=== PATIENT | male | born 1940 | race Caucasian/White ===

== ENCOUNTER 2017-02-23 10:17 | Emergency (ER) | payer MEDICARE ==
[2017-02-23] MEDS ORDERED: Sodium Chloride 0.9% 10 ML Syringe FLUSH PRN (11:02)
--- NOTE | 2017-02-23 11:14 | EDM.PDOC ---
ED HPI GENERAL MEDICAL PROBLEM - General Chief Complaint: Upper Extremity Injury/Pain Stated Complaint: HURT LT ARM Time Seen by Provider: 02/23/17 11:10 Source of Information: Reports: Patient, Family, Old Records, RN Notes Reviewed History Limitations: Reports: No Limitations - History of Present Illness INITIAL COMMENTS - FREE TEXT/NARRATIVE: Felicia presents emergency department today complaint of left shoulder pain he injured himself while he was walking his dog hip tripped and fallen on outstretched arm with a dog was pulling on the leash he does have a history of anterior shoulder dislocation about 3 years ago Left Shoulder Pain Score (Numeric/FACES): 6 - Related Data Allergies Allergy/AdvReac Type Severity Reaction Status Date / Time No Known Allergies Allergy Verified 02/23/17 10:49 Home Meds: Home Meds Gemfibrozil [Gemfibrozil] 600 mg PO BID 06/16/14 [History] Omeprazole [Omeprazole] 20 mg PO DAILY 06/16/14 [History] Simvastatin [Simvastatin] 40 mg PO BEDTIME 06/16/14 [History] Nitroglycerin [Nitrostat] 0.4 mg SL ASDIRECTED PRN 03/16/15 [History] Sildenafil [Viagra] 100 mg PO BEDTIME PRN 03/16/15 [History] Triamcinolone Acetonide [Kenalog 0.1% Crm] 1 applic TOP BID 03/16/15 [History] Aspirin [Halfprin] 1 tab PO DAILY 02/23/17 [History] Melatonin 1 tab PO BEDTIME 02/23/17 [History] Metoprolol Tartrate 1 tab PO BID 02/23/17 [History] Past Medical History HEENT History: Reports: Hard of Hearing, Impaired Vision Cardiovascular History: Reports: CAD, Hypertension Musculoskeletal History: Reports: Other (See Below) Other Musculoskeletal History: torn rotator cuff left shoulder Oncologic (Cancer) History: Reports: Prostate - Past Surgical History Cardiovascular Surgical History: Reports: Coronary Artery Stent Male Surgical History: Reports: Prostatectomy Social & Family History - Tobacco Use Smoking Status *Q: Never Smoker - Alcohol Use Days Per Week of Alcohol Use: 7 Number of Drinks Per Day: 4 Total Drinks Per Week: 28 - Recreational Drug Use Recreational Drug Use: No Review of Systems - Review of Systems Review Of Systems: See Below Musculoskeletal: Reports: Shoulder Pain ED EXAM, GENERAL - Physical Exam Exam: See Below Free Text/Narrative:: examination of left shoulder I do appreciate a bulge in the anterior aspect he has limited range of motion of the shoulder there is pain with any movement radial pulses 2+ he has full range of motion of all his digits Exam Limited By: No Limitations General Appearance: Alert, WD/WN, No Apparent Distress ED TRAUMA EXTREMITY PROCEDURES - Joint Reduction Site: Shoulder (L) Sedation: Conscious Cedation, Other (see anesthesia note for details) Pre-Procedure NV Status: Normal Post-Procedure NV Status: Normal Technique: Traction/Counter Traction Number of Attempts: 2 Post-Reduction Imaging: Completely Reduced Joint Reduction Complications: No Course - Vital Signs Last Recorded V/S: Last Vital Signs Temp 98.2 F 02/23/17 10:41 Pulse 63 02/23/17 10:56 Resp 14 02/23/17 10:56 BP 168/101 H 02/23/17 10:56 Pulse Ox 97 02/23/17 10:56 - Orders/Labs/Meds Orders: Active Orders 24 hr Category Date Time Status Peripheral IV Care [RC] . DIRECTED Care 02/23/17 11:02 Active Shoulder 1V Lt [CR] Stat Exams 02/23/17 10:27 Taken Shoulder 1V Lt [CR] Stat Exams 02/23/17 11:58 Ordered Shoulder 1V Lt [CR] Stat Exams 02/23/17 12:20 Ordered Sodium Chloride 0.9% [Normal Saline] 1,000 ml Med 02/23/17 11:15 Active IV ASDIRECTED Sodium Chloride 0.9% [Saline Flush] Med 02/23/17 11:02 Active 10 ml FLUSH ASDIRECTED PRN Peripheral IV Insertion Adult [OM.PC] Urgent Oth 02/23/17 11:02 Ordered Medication Orders Sodium Chloride (Normal Saline) 1,000 mls @ 125 mls/hr IV ASDIRECTED ELVA Last Admin: 02/23/17 11:08 Dose: 125 mls/hr Sodium Chloride (Saline Flush) 10 ml FLUSH ASDIRECTED PRN PRN Reason: Keep Vein Open Last Admin: 02/23/17 11:09 Dose: 10 ml Meds: Medications Generic Name Dose Route Start Last Admin Trade Name Freq PRN Reason Stop Dose Admin Sodium Chloride 1,000 mls @ 125 mls/hr 02/23/17 11:15 02/23/17 11:08 Normal Saline IV 125 mls/hr ASDIRECTED ELVA Administration Sodium Chloride 10 ml 02/23/17 11:02 02/23/17 11:09 Saline Flush FLUSH 10 ml ASDIRECTED PRN Administration Keep Vein Open Discontinued Medications Generic Name Dose Route Start Last Admin Trade Name Freq PRN Reason Stop Dose Admin Ketorolac Tromethamine 30 mg 02/23/17 11:43 02/23/17 11:48 Toradol IVPUSH 02/23/17 11:44 30 mg ONETIME ONE Administration Departure - Departure Time of Disposition: 12:23 Disposition: Home, Self-Care 01 Condition: Good Clinical Impression: Anterior shoulder dislocation Qualifiers: Encounter type: initial encounter Laterality: left Qualified Code(s): S43.015A - Anterior dislocation of left humerus, initial encounter - Discharge Information Forms: ED Department Discharge Additional Instructions: Use Tylenol or Motrin as needed for pain control, recommend follow-up with orthopedics for further evaluation - My Orders Last 24 Hours: My Active Orders 02/23/17 10:27 Shoulder 1V Lt [CR] Stat 02/23/17 11:02 Peripheral IV Care [RC] . DIRECTED Sodium Chloride 0.9% [Saline Flush] 10 ml FLUSH ASDIRECTED PRN Peripheral IV Insertion Adult [OM.PC] Urgent 02/23/17 11:15 Sodium Chloride 0.9% [Normal Saline] 1,000 ml IV ASDIRECTED 02/23/17 11:58 Shoulder 1V Lt [CR] Stat 02/23/17 12:20 Shoulder 1V Lt [CR] Stat - Assessment/Plan Last 24 Hours: My Active Orders 02/23/17 10:27 Shoulder 1V Lt [CR] Stat 02/23/17 11:02 Peripheral IV Care [RC] . DIRECTED Sodium Chloride 0.9% [Saline Flush] 10 ml FLUSH ASDIRECTED PRN Peripheral IV Insertion Adult [OM.PC] Urgent 02/23/17 11:15 Sodium Chloride 0.9% [Normal Saline] 1,000 ml IV ASDIRECTED 02/23/17 11:58 Shoulder 1V Lt [CR] Stat 02/23/17 12:20 Shoulder 1V Lt [CR] Stat Plan: Assessment Acuity = acute Site and laterality = anterior shoulder dislocation status post closed reduction Etiology = secondary to trauma Manifestations = pain now resolved Location of injury = Home Lab values = multiple x-rays two tamps the first 2 x-rays show continued anterior shoulder dislocation second x-ray shows post reduction Plan He is placed in a sling plan is to follow-up with orthopedics for further evaluation Patient was in agreement with the plan all questions were answered, they were instructed to return to the emergency department or call for worsening symptoms. This note was dictated using vidCoin voice recognition software please call with any questions.
[2017-02-23] MEDS ORDERED: Sodium Chloride 0.9% 1,000 ML IV SCH (11:15)
[2017-02-23] MEDS ORDERED: Ketorolac 30 MG/ML SDV IVPUSH ONE (11:43)
[2017-02-23] MEDS ORDERED: Propofol 200 MG/20 ML SDV ONE ×2 (12:21)
[2017-02-23 13:09] VITALS: BP 150/78
--- NOTE | 2017-02-24 11:05 | CR ---
Anterior shoulder dislocation. Hill-Sachs deformity is evident.
--- NOTE | 2017-02-24 11:07 | CR ---
Relocated left shoulder.
--- NOTE | 2017-02-24 11:08 | CR ---
Anterior shoulder dislocation.
== END 2017-02-23 12:40 | disposition home or self-care (01) ==
LOC: JP.ED 10:17
DX: S43.015A Anterior dislocation of left humerus, initial encounter (principal); I10 Essential (primary) hypertension; I25.10 Atherosclerotic heart disease of native coronary artery without angina pectoris; Z95.5 Presence of coronary angioplasty implant and graft; Z85.46 Personal history of malignant neoplasm of prostate; Z90.79 Acquired absence of other genital organ(s); Z79.82 Long term (current) use of aspirin; Z79.899 Other long term (current) drug therapy; W01.0XXA Fall on same level from slipping, tripping and stumbling without subsequent striking against object, initial encounter
CPT/HCPCS: 23650; 73020; 96374; 99284; J1885; J2704; J7040; J7050

== ENCOUNTER 2018-01-17 14:01 | Observation (INO) | payer MEDICARE ==
[2018-01-17] MEDS ORDERED: fentaNYL 100 MCG/2 ML SDV IVPUSH ONE (14:48)
[2018-01-17] MEDS ORDERED: Ondansetron 4 MG/2 ML SDV IVPUSH ONE (14:48)
--- NOTE | 2018-01-17 14:55 | EDM.PDOC ---
ED HPI GENERAL MEDICAL PROBLEM - General Chief Complaint: Abdominal Pain Stated Complaint: MED[facility] Time Seen by Provider: 01/17/18 14:30 Source of Information: Reports: Patient, EMS, Family History Limitations: Reports: No Limitations - History of Present Illness INITIAL COMMENTS - FREE TEXT/NARRATIVE: 77-year-old male brought in by ambulance with abdominal pain. Started developing some pain earlier this morning, worsening as the day went on. He fell and struck the left side of his head about 3 hours ago but had no loss of consciousness. He did not trip, he just became suddenly weak and "lost it". He thought it was related to the nausea. He has intermittent diarrhea that he thinks is a side effect of some medication that he started 6 weeks ago. No fevers or chills. He has a history of prostate cancer with surgery, no other abdominal medical history. The pain is across the lower abdomen, does not radiate to his back and he ate a small amount of food this morning, it did not make it worse or better. He has not had any emesis until after I examined his abdomen which seemed to cause some nausea and he had several bouts of emesis. Onset: Today Duration: Hour(s): (Started roughly 8 hours ago) Location: Reports: Abdomen Quality: Reports: Sharp, Stabbing, Other (Pressure sensation in his lower abdomen) Severity: Moderate Associated Symptoms: Reports: Cough, Nausea/Vomiting. Denies: Chest Pain Abdominal Pain Score (Numeric/FACES): 4 - Related Data Allergies Allergy/AdvReac Type Severity Reaction Status Date / Time No Known Allergies Allergy Verified 01/17/18 14:20 Home Meds: Home Meds Gemfibrozil 600 mg PO BID 06/16/14 [History] Omeprazole 20 mg PO DAILY 06/16/14 [History] Simvastatin 40 mg PO BEDTIME 06/16/14 [History] Nitroglycerin [Nitrostat] 0.4 mg SL ASDIRECTED PRN 03/16/15 [History] Sildenafil [Viagra] 100 mg PO BEDTIME PRN 03/16/15 [History] Triamcinolone Acetonide [Kenalog 0.1% Crm] 1 applic TOP BID 03/16/15 [History] Aspirin [Halfprin] 1 tab PO DAILY 02/23/17 [History] Melatonin 1 tab PO BEDTIME 02/23/17 [History] Losartan [Cozaar] 1 tab PO DAILY 01/17/18 [History] Metoprolol Tartrate 1 tab PO BID 01/17/18 [History] Nintedanib Esylate [Ofev] 1 tab PO BID 01/17/18 [History] Past Medical History HEENT History: Reports: Hard of Hearing, Impaired Vision Cardiovascular History: Reports: CAD, Hypertension Other Respiratory History: 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 Denies: Fever, Chills HEENT: Reports: No Symptoms Respiratory: Reports: Shortness of Breath, Cough Cardiovascular: Denies: Chest Pain GI/Abdominal: Reports: Abdominal Pain, Diarrhea, Nausea, Vomiting : Reports: No Symptoms (History of prostate cancer with surgery) Skin: Reports: Bruising (Has a superficial abrasion and bruise forming on the left forehead from a recent fall) ED EXAM, GI/ABD - Physical Exam Exam: See Below Exam Limited By: No Limitations General Appearance: Alert, Mild Distress (Looks fairly uncomfortable) Eyes: Bilateral: Normal Appearance (EOMs intact and there is no jaundice) Head: Other (Abrasion is present on the left parietal scalp and forehead, with a tiny scrape on the inner aspect of the left nasal bridge) Neck: Supple, Non-Tender Respiratory/Chest: No Respiratory Distress, Rhonchi (Diffuse rhonchi, decreased breath sounds in the left base) GI/Abdominal Exam: Normal Bowel Sounds, Soft (Less tenderness than would be expected without guarding to palpation of the abdomen) Extremities: Other (He has ecchymosis and tenderness around the right thumb from his fall) Neurological: Alert, Oriented, No Motor/Sensory Deficits Psychiatric: Normal Affect, Normal Mood Course - Vital Signs Last Recorded V/S: Last Vital Signs Temp 98.2 F 01/18/18 07:02 Pulse 61 01/18/18 07:02 Resp 18 01/18/18 07:02 BP 110/79 01/18/18 07:02 Pulse Ox 98 05/27/18 07:02 - Orders/Labs/Meds Orders: Active Orders 24 hr Category Date Time Status Abdomen Pelvis wo Cont [CT] Stat Exams 01/17/18 15:44 Taken Chest 1V Frontal [CR] Stat Exams 01/17/18 14:55 Taken Fingers Thumb Rt F5 [CR] Stat Exams 01/17/18 15:44 Taken Medication Orders Acetaminophen (Tylenol) 650 mg PO Q4H PRN PRN Reason: Pain (Mild 1-3)/fever Albuterol (Proventil Neb Soln) 2.5 mg NEB Q4H PRN PRN Reason: Shortness Of Breath/wheezing Aspirin (Halfprin) 81 mg PO DAILY [facility] Fentanyl (Sublimaze) 25 mcg IVPUSH Q2H PRN PRN Reason: Pain (severe 7-10) Gemfibrozil (Lopid) 600 mg PO BID [facility] Last Admin: 01/17/18 20:59 Dose: 600 mg Sodium Chloride (Normal Saline) 1,000 mls @ 75 mls/hr IV ASDIRECTED [facility] Last Admin: 01/17/18 20:00 Dose: 75 mls/hr Ibuprofen (Motrin) 600 mg PO Q6H PRN PRN Reason: Pain/Fever Last Admin: 01/18/18 07:15 Dose: 600 mg Lorazepam (Ativan) 0.5 - 1 mg IVPUSH Q4H PRN PRN Reason: Nausea/Vomiting Losartan Potassium (Cozaar) 50 mg PO DAILY [facility] Melatonin (Melatonin) 3 mg PO BEDTIME PRN PRN Reason: Sleep Last Admin: 01/17/18 21:00 Dose: 3 mg Metoprolol Tartrate (Lopressor) 50 mg PO BID [facility] Last Admin: 01/17/18 20:59 Dose: 50 mg Nintedanib Esylate [ Ofev] 150mg Pt Own 1 tab PO BID [facility] Last Admin: 01/17/18 21:01 Dose: 1 tab Omeprazole 20mg Cap (Pt Own) 20 each PO ACBREAKFAST [facility] Last Admin: 01/18/18 07:16 Dose: 20 each Simvastatin 40mg Tab (Pt Own) 40 each PO BEDTIME [facility] Last Admin: 01/17/18 21:00 Dose: 40 each Ondansetron HCl (Zofran Odt) 4 mg PO Q6H PRN PRN Reason: Nausea able to take PO Ondansetron HCl (Zofran) 4 mg IV Q6H PRN PRN Reason: Nausea/Vomiting Labs: Laboratory Tests 01/17/18 01/17/18 01/17/18 Range/Units 15:06 15:06 15:06 WBC 8.4 (4.5-11.0) K/uL RBC 4.69 (4.30-5.90) M/uL Hgb 14.6 (12.0-15.0) g/dL Hct 41.2 (40.0-54.0) % MCV 88 (80-98) fL MCH 31 (27-31) pg MCHC 35 (32-36) % Plt Count 257 (150-400) K/uL Neut % (Auto) 79 H (36-66) % Lymph % (Auto) 15 L (24-44) % [place] % (Auto) 6 (2-6) % Eos % (Auto) 0 L (2-4) % Baso % (Auto) 0 (0-1) % Sodium 128 L (140-148) mmol/L Potassium 4.0 (3.6-5.2) mmol/L Chloride 92 L (100-108) mmol/L Carbon Dioxide 23 (21-32) mmol/L Anion Gap 17.0 H (5.0-14.0) mmol/L BUN 11 (7-18) mg/dL Creatinine 0.7 L (0.8-1.3) mg/dL Est Cr Clr Drug Dosing 72.83 mL/min Estimated GFR (MDRD) > 60 (>60) Glucose 119 H (74-106) mg/dL Calcium 8.8 (8.5-10.1) mg/dL Total Bilirubin 0.9 (0.2-1.0) mg/dL AST 21 (15-37) U/L ALT 16 (12-78) U/L Alkaline Phosphatase 87 (46-116) U/L Troponin I 0.054 (0.000-0.056) ng/mL Total Protein 7.9 (6.4-8.2) g/dL Albumin 3.8 (3.4-5.0) g/dL Globulin 4.1 H (2.3-3.5) g/dL Albumin/Globulin Ratio 0.9 L (1.2-2.2) Urine Color Urine Appearance Urine pH (4.5-8.0) Ur Specific [place] (1.008-1.030) Urine Protein (NEGATIVE) mg/dL Urine Glucose (UA) (NEGATIVE) mg/dL Urine Ketones (NEGATIVE) mg/dL Urine Occult Blood (NEGATIVE) Urine Nitrite (NEGAITVE) Urine Bilirubin (NEGATIVE) Urine Urobilinogen (NORMAL) mg/dL Ur Leukocyte Esterase (NEGATIVE) Urine RBC (0-5) Urine WBC (0-5) Ur Epithelial Cells Amorphous Sediment Urine Bacteria Urine Mucus 01/17/18 Range/Units 15:47 WBC (4.5-11.0) K/uL RBC (4.30-5.90) M/uL Hgb (12.0-15.0) g/dL Hct (40.0-54.0) % MCV (80-98) fL MCH (27-31) pg MCHC (32-36) % Plt Count (150-400) K/uL Neut % (Auto) (36-66) % Lymph % (Auto) (24-44) % [place] % (Auto) (2-6) % Eos % (Auto) (2-4) % Baso % (Auto) (0-1) % Sodium (140-148) mmol/L Potassium (3.6-5.2) mmol/L Chloride (100-108) mmol/L Carbon Dioxide (21-32) mmol/L Anion Gap (5.0-14.0) mmol/L BUN (7-18) mg/dL Creatinine (0.8-1.3) mg/dL Est Cr Clr Drug Dosing mL/min Estimated GFR (MDRD) (>60) Glucose (74-106) mg/dL Calcium (8.5-10.1) mg/dL Total Bilirubin (0.2-1.0) mg/dL AST (15-37) U/L ALT (12-78) U/L Alkaline Phosphatase (46-116) U/L Troponin I (0.000-0.056) ng/mL Total Protein (6.4-8.2) g/dL Albumin (3.4-5.0) g/dL Globulin (2.3-3.5) g/dL Albumin/Globulin Ratio (1.2-2.2) Urine Color Yellow Urine Appearance Slightly cloudy Urine pH 7.0 (4.5-8.0) Ur Specific [place] 1.010 (1.008-1.030) Urine Protein Negative (NEGATIVE) mg/dL Urine Glucose (UA) Normal (NEGATIVE) mg/dL Urine Ketones Negative (NEGATIVE) mg/dL Urine Occult Blood Negative (NEGATIVE) Urine Nitrite Negative (NEGAITVE) Urine Bilirubin Negative (NEGATIVE) Urine Urobilinogen Normal (NORMAL) mg/dL Ur Leukocyte Esterase Negative (NEGATIVE) Urine RBC 0-5 (0-5) Urine WBC Not seen (0-5) Ur Epithelial Cells Not seen Amorphous Sediment Many Urine Bacteria Rare Urine Mucus Not seen Meds: Medications Generic Name Dose Route Start Last Admin Trade Name Freq PRN Reason Stop Dose Admin Acetaminophen 650 mg 01/17/18 18:50 Tylenol PO Q4H PRN Pain (Mild 1-3)/fever Albuterol 2.5 mg 01/17/18 18:50 Proventil Neb Soln NEB Q4H PRN Shortness Of Breath/wheezing Aspirin 81 mg 01/18/18 09:00 Halfprin PO DAILY ELVA Fentanyl 25 mcg 01/17/18 18:50 Sublimaze IVPUSH Q2H PRN Pain (severe 7-10) Gemfibrozil 600 mg 01/17/18 21:00 01/17/18 20:59 Lopid PO 600 mg BID ELVA Administration Sodium Chloride 1,000 mls @ 75 mls/hr 01/17/18 18:50 01/17/18 20:00 Normal Saline IV 75 mls/hr ASDIRECTED ELVA Administration Ibuprofen 600 mg 01/17/18 18:50 01/18/18 07:15 Motrin PO 600 mg Q6H PRN Administration Pain/Fever Lorazepam 0.5 - 1 mg 01/17/18 18:50 Ativan IVPUSH Q4H PRN Nausea/Vomiting Losartan Potassium 50 mg 01/18/18 09:00 Cozaar PO DAILY ELVA Melatonin 3 mg 01/17/18 20:31 01/17/18 21:00 Melatonin PO 3 mg BEDTIME PRN Administration Sleep Metoprolol Tartrate 50 mg 01/17/18 21:00 01/17/18 20:59 Lopressor PO 50 mg BID ELVA Administration Nintedanib Esylate [ 1 tab 01/17/18 21:00 01/17/18 21:01 Ofev] 150mg Pt PO 1 tab Own BID ELVA Administration Omeprazole 20mg Cap 20 each 01/18/18 07:30 01/18/18 07:16 Pt Own PO 20 each ACBREAKFAST ELVA Administration Simvastatin 40mg Tab 40 each 01/17/18 21:00 01/17/18 21:00 Pt Own PO 40 each BEDTIME ELVA Administration Ondansetron HCl 4 mg 01/17/18 18:50 Zofran Odt PO Q6H PRN Nausea able to take PO Ondansetron HCl 4 mg 01/17/18 18:50 Zofran IV Q6H PRN Nausea/Vomiting Discontinued Medications Generic Name Dose Route Start Last Admin Trade Name Freq PRN Reason Stop Dose Admin Fentanyl 25 mcg 01/17/18 14:48 01/17/18 15:19 Sublimaze IVPUSH 01/17/18 14:49 25 mcg ONETIME ONE Administration Sodium Chloride 1,000 mls @ 250 mls/hr 01/17/18 15:00 01/17/18 15:18 Normal Saline IV 250 mls/hr ASDIRECTED ELVA Administration Ondansetron HCl 4 mg 01/17/18 14:48 01/17/18 15:19 Zofran IVPUSH 01/17/18 14:49 4 mg ONETIME ONE Administration - Re-Assessments/Exams Free Text/Narrative Re-Assessment/Exam: 01/17/18 15:30 A portable chest x-ray was obtained because of the persistent cough, he appears to have an infiltrate in the left base. His CBC returned normal, white count is normal, no fever. This could be worsening pulmonary fibrosis. An IV was started and the patient was given 4 mg of IV Zofran along with 25 g of fentanyl. This markedly improved his abdominal symptoms. 01/17/18 17:15 CT scan of the abdomen and pelvis revealed an increasing colonic air and possible ileus. The patient's symptoms persisted, he feels weak and is still having abdominal pain. I did x-ray his thumb and it appears he has a subtle fracture of the distal phalanx. I don't think this patient is stable enough or strong enough to take care of himself at home, so I asked the hospitalist service to evaluate the patient for possible admission to treat abdominal pain, ileus until improved. Departure - Departure Time of Disposition: 20:27 Disposition: Admitted As Inpatient 65 Condition: Fair Clinical Impression: Ileus, unspecified Abdominal pain Qualifiers: Abdominal location: generalized Qualified Code(s): R10.84 - Generalized abdominal pain - Discharge Information - My Orders Last 24 Hours: My Active Orders 01/17/18 14:55 Chest 1V Frontal [CR] Stat 01/17/18 15:44 Abdomen Pelvis wo Cont [CT] Stat Fingers Thumb Rt F5 [CR] Stat - Assessment/Plan Last 24 Hours: My Active Orders 01/17/18 14:55 Chest 1V Frontal [CR] Stat 01/17/18 15:44 Abdomen Pelvis wo Cont [CT] Stat Fingers Thumb Rt F5 [CR] Stat
[2018-01-17] MEDS ORDERED: Sodium Chloride 0.9% 1,000 ML IV SCH (15:00)
--- NOTE | 2018-01-17 17:55 | PCM.HP ---
H&P History of Present Illness - General Date of Service: 01/17/18 Admit Problem/Dx: Admission Diagnosis/Problem Admission Diagnosis/Problem Abdominal pain Source of Information: Patient, Family, Provider History Limitations: Reports: No Limitations - History of Present Illness Initial Comments - Free Text/Narative: Reed presents with acute generalized abdominal pain that started this morning. He describes generalized but especially lower abdominal pain that is described as pressure-like in nature. Pain started out relatively mild and has progressed throughout the day to the point that it was severe. He had some associated nausea but had not vomited until he was in the emergency room. He did not take anything to help the pain at home. He did eat after the pain started and this did not seem to make it better or worse. No obvious trigger but the pain has been progressively getting worse. He does note that he had one episode of diarrhea this morning and took 4 mg of loperamide thinking that the diarrhea was a side effect of his medication for pulmonary fibrosis. He has not used the loperamide in approximately one week prior to this morning. He has not had any fevers or chills. He does not feel any more short of breath than usual. He has not recently started new medications other than his IPF medication about 5 weeks ago. No recent use of antihistamines. he did have a fall at home and struck the right hand and left side of his forehead. Pain resulted because of severe pain leading to him becoming weak and collapsing. Workup in the emergency room revealed fairly normal laboratory studies. Chest x- ray showed home and are fibrosis but no acute findings. X-ray of the thumb showed possible subtle fracture of the distal phalanx. CT of the abdomen showed a distended gas-filled colon concerning for mild ileus. Given the severity of his pain he will be admitted for observation, pain control and additional treatment if needed. - Related Data Allergies/Adverse Reactions: Allergies Allergy/AdvReac Type Severity Reaction Status Date / Time No Known Allergies Allergy Verified 01/17/18 14:20 Home Medications: Home Meds Gemfibrozil 600 mg PO BID 06/16/14 [History] Omeprazole 20 mg PO DAILY 06/16/14 [History] Simvastatin 40 mg PO BEDTIME 06/16/14 [History] Nitroglycerin [Nitrostat] 0.4 mg SL ASDIRECTED PRN 07/23/15 [History] Sildenafil [Viagra] 100 mg PO BEDTIME PRN 03/16/15 [History] Triamcinolone Acetonide [Kenalog 0.1% Crm] 1 applic TOP BID 03/16/15 [History] Aspirin [Halfprin] 1 tab PO DAILY 02/23/17 [History] Melatonin 1 tab PO BEDTIME 02/23/17 [History] Metoprolol Tartrate 1 tab PO BID 02/23/17 [History] Nintedanib Esylate [Ofev] 1 tab PO BID 01/17/18 [History] Past Medical History HEENT History: Reports: Hard of Hearing, Impaired Vision Cardiovascular History: Reports: CAD, Hypertension Other Respiratory History: new Dx IPF in Aug now on home o2 Musculoskeletal History: Reports: Other (See Below) Other Musculoskeletal History: torn rotator cuff left shoulder Oncologic (Cancer) History: Reports: Prostate - Past Surgical History Cardiovascular Surgical History: Reports: Coronary Artery Stent Male Surgical History: Reports: Prostatectomy Social & Family History - Family History Respiratory: Denies: Other (See Below) (no hx of IPF) - Tobacco Use Smoking Status *Q: Never Smoker - Alcohol Use Alcohol Use History: No H&P Review of Systems - Review of Systems: Review Of Systems: See Below Free Text/Narrative: A complete 12 point review of systems was obtained. Pertinent positives and negatives are noted in the history of present illness. All other systems were reviewed and were negative except as noted. Exam - Exam Exam: See Below - Vital Signs Vital Signs: Last Vital Signs Temp 36.8 C 01/17/18 14:33 Pulse 86 01/17/18 16:39 Resp 16 01/17/18 16:39 BP 137/100 H 01/17/18 16:39 Pulse Ox 99 01/17/18 16:39 Weight: 63.503 kg - Exam Quality Assessment: Supplemental Oxygen General: Alert, Oriented, Cooperative, Mild Distress HEENT: Other (mild abrasion left forehead). No: Mucosa Moist & [place] (dry), Scleral Icterus Neck: Supple, Trachea Midline Lungs: Normal Respiratory Effort, Crackles (dry crackles both bases). No: Wheezing Cardiovascular: Regular Rate, Regular Rhythm GI/Abdominal Exam: Normal Bowel Sounds, Soft, Non-Tender, No Distention, No Mass Back Exam: Normal Inspection, Full Range of Motion Extremities: Pedal Edema (right leg swollen below the knee). No: Kulwinder's Sign, Increased Warmth Peripheral Pulses: 2+: Dorsalis Pedis (L), Dorsalis Pedis (R) Skin: Warm, Dry Neuro Extensive - Mental Status: Alert, Oriented x3, Nl Response to Commands Neuro Extensive - Motor, Sensory, Reflexes: CN II-XII Intact. No: Dysarthria, Abnormal Motor, Tremor Psychiatric: Alert, Normal Affect - Patient Data Lab Results Last 24 hrs: Laboratory Results - last 24 hr 01/17/18 01/17/18 01/17/18 Range/Units 15:06 15:06 15:06 WBC 8.4 (4.5-11.0) K/uL RBC 4.69 (4.30-5.90) M/uL Hgb 14.6 (12.0-15.0) g/dL Hct 41.2 (40.0-54.0) % MCV 88 (80-98) fL MCH 31 (27-31) pg MCHC 35 (32-36) % Plt Count 257 (150-400) K/uL Neut % (Auto) 79 H (36-66) % Lymph % (Auto) 15 L (24-44) % Edd[place] % (Auto) 6 (2-6) % Eos % (Auto) 0 L (2-4) % Baso % (Auto) 0 (0-1) % Sodium 128 L (140-148) mmol/L Potassium 4.0 (3.6-5.2) mmol/L Chloride 92 L (100-108) mmol/L Carbon Dioxide 23 (21-32) mmol/L Anion Gap 17.0 H (5.0-14.0) mmol/L BUN 11 (7-18) mg/dL Creatinine 0.7 L (0.8-1.3) mg/dL Est Cr Clr Drug Dosing 72.83 mL/min Estimated GFR (MDRD) > 60 (>60) Glucose 119 H (74-106) mg/dL Calcium 8.8 (8.5-10.1) mg/dL Total Bilirubin 0.9 (0.2-1.0) mg/dL AST 21 (15-37) U/L ALT 16 (12-78) U/L Alkaline Phosphatase 87 (46-116) U/L Troponin I 0.054 (0.000-0.056) ng/mL Total Protein 7.9 (6.4-8.2) g/dL Albumin 3.8 (3.4-5.0) g/dL Globulin 4.1 H (2.3-3.5) g/dL Albumin/Globulin Ratio 0.9 L (1.2-2.2) Urine Color Urine Appearance Urine pH (4.5-8.0) Ur Specific [place] (1.008-1.030) Urine Protein (NEGATIVE) mg/dL Urine Glucose (UA) (NEGATIVE) mg/dL Urine Ketones (NEGATIVE) mg/dL Urine Occult Blood (NEGATIVE) Urine Nitrite (NEGAITVE) Urine Bilirubin (NEGATIVE) Urine Urobilinogen (NORMAL) mg/dL Ur Leukocyte Esterase (NEGATIVE) Urine RBC (0-5) Urine WBC (0-5) Ur Epithelial Cells Amorphous Sediment Urine Bacteria Urine Mucus 01/17/18 Range/Units 15:47 WBC (4.5-11.0) K/uL RBC (4.30-5.90) M/uL Hgb (12.0-15.0) g/dL Hct (40.0-54.0) % MCV (80-98) fL MCH (27-31) pg MCHC (32-36) % Plt Count (150-400) K/uL Neut % (Auto) (36-66) % Lymph % (Auto) (24-44) % Eddy % (Auto) (2-6) % Eos % (Auto) (2-4) % Baso % (Auto) (0-1) % Sodium (140-148) mmol/L Potassium (3.6-5.2) mmol/L Chloride (100-108) mmol/L Carbon Dioxide (21-32) mmol/L Anion Gap (5.0-14.0) mmol/L BUN (7-18) mg/dL Creatinine (0.8-1.3) mg/dL Est Cr Clr Drug Dosing mL/min Estimated GFR (MDRD) (>60) Glucose (74-106) mg/dL Calcium (8.5-10.1) mg/dL Total Bilirubin (0.2-1.0) mg/dL AST (15-37) U/L ALT (12-78) U/L Alkaline Phosphatase (46-116) U/L Troponin I (0.000-0.056) ng/mL Total Protein (6.4-8.2) g/dL Albumin (3.4-5.0) g/dL Globulin (2.3-3.5) g/dL Albumin/Globulin Ratio (1.2-2.2) Urine Color Yellow Urine Appearance Slightly cloudy Urine pH 7.0 (4.5-8.0) Ur Specific [place] 1.010 (1.008-1.030) Urine Protein Negative (NEGATIVE) mg/dL Urine Glucose (UA) Normal (NEGATIVE) mg/dL Urine Ketones Negative (NEGATIVE) mg/dL Urine Occult Blood Negative (NEGATIVE) Urine Nitrite Negative (NEGAITVE) Urine Bilirubin Negative (NEGATIVE) Urine Urobilinogen Normal (NORMAL) mg/dL Ur Leukocyte Esterase Negative (NEGATIVE) Urine RBC 0-5 (0-5) Urine WBC Not seen (0-5) Ur Epithelial Cells Not seen Amorphous Sediment Many Urine Bacteria Rare Urine Mucus Not seen Result Diagrams: 01/17/18 15:06 01/17/18 15:06 Imaging Impressions Last 24 hrs: CT abdomen/pelvis - images personally reviewed - there is impressive distention of the colon with bowel gas. No evidence for small or large bowel obstruction. No other acute intra-abdominal findings are noted. CXR - images also personally reviewed - bibasilar scarring left greater than right. No definite new infiltrate. No obvious mass. Heart size is normal. XR right thumb - possible subtle fracture of the distal portion of the phalanx. *Q Meaningful Use (ADM) - VTE Risk Assess *Q Each Risk Factor Represents 1 Point: Abnormal Pulmonary Function (COPD) Total Score 1 Point Risk Factors: 1 Each Risk Factor Represents 2 Points: Malignancy (present or previous) Total Score 2 Point Risk Factors: 2 Each Risk Factor Represents 3 Points: Age 75 Years or Greater Total Score 3 Point Risk Factors: 3 Each Risk Factor Represents 5 Points: None Total Score 5 Point Risk Factors: 0 Venous Thromboembolism Risk Factor Score *Q: 6 - Problem List (1) Ileus, unspecified SNOMED Code(s): 22288237 ICD Code: K56.7 - ILEUS, UNSPECIFIED Status: Acute Current Visit: Yes (2) Abdominal pain SNOMED Code(s): 14701409 ICD Code: R10.9 - UNSPECIFIED ABDOMINAL PAIN Status: Acute Current Visit : Yes Qualifiers: Abdominal location: generalized Qualified Code(s): R10.84 - Generalized abdominal pain (3) Idiopathic pulmonary fibrosis Status: Chronic Current Visit: Yes Problem List Initiated/Reviewed/Updated: Yes Orders Last 24hrs: Active Orders 24 hr Category Date Time Status Patient Status Manage Transfer [TRANSFER] Routine ADT 01/17/18 17:45 Ordered Abdomen Pelvis wo Cont [CT] Stat Exams 01/17/18 15:44 Taken Chest 1V Frontal [CR] Stat Exams 01/17/18 14:55 Taken Fingers Thumb Rt F5 [CR] Stat Exams 01/17/18 15:44 Taken UA W/MICROSCOPIC [URIN] Urgent Lab 01/17/18 15:47 Ordered Sodium Chloride 0.9% [Normal Saline] 1,000 ml Med 01/17/18 15:00 Active IV ASDIRECTED Resuscitation Status Routine Resus Stat 01/17/18 17:46 Ordered Medication Orders Sodium Chloride (Normal Saline) 1,000 mls @ 250 mls/hr IV ASDIRECTED [facility] Last Admin: 01/17/18 15:18 Dose: 250 mls/hr Assessment/Plan Comment:: ASSESSMENT AND PLAN - Acute abdominal pain and probable ileus - no other obvious explanation for his abdominal pain. Only obvious potential cause for the ileus would be the use of loperamide this morning. No other concerning medications. Not usual side effect of his new medication for IPF. No evidence for infection that I can find. Abdominal pain has been improving throughout the emergency room stay but has not resolved. -Avoid loperamide and anticholinergics -Gentle hydration -Pain control -Nausea management -Abdominal x-ray in the morning idiopathic pulmonary fibrosis - recently started on new medication to help slow the progression. Seem to be tolerating this medication well over the past 5 weeks. Ileus is not a usual side effect of the medication. He is oxygen dependent. -Supplement oxygen -Continue home medications Fall with mild trauma - patient collapsed due to pain. Small abrasion left forehead and bruising around the right thumb. X-ray suggested possible mild fracture of the distal portion of the phalanx. -Pain control Right leg swelling - developed within the last couple of weeks. He does have a history of malignancy and I plan to rule out DVT. Leg is not warm or painful. -Lower extremity ultrasound Maintenance issues - - DVT prophylaxis - antiembolic stockings - GI prophylaxis - not indicated - Nutrition - regular diet as tolerated - Nash catheter - not indicated CODE STATUS - DNR/DNI Admission justification - patient will be referred observation status for pain control and additional monitoring and workup of his abdominal pain and probable ileus Disposition - anticipate discharge home tomorrow Primary care physician - Dr Carmelo Rivero M.D.
[2018-01-17] MEDS ORDERED: LORazepam 2 MG/ML SDV IVPUSH PRN (18:50)
[2018-01-17] MEDS ORDERED: Ondansetron 4 MG/2 ML SDV IV PRN (18:50)
[2018-01-17] MEDS ORDERED: Ibuprofen 600 MG Tab PO PRN (18:50)
[2018-01-17] MEDS ORDERED: Albuterol 0.083% 2.5 MG/3 ML Neb Soln NEB PRN (18:50)
[2018-01-17] MEDS ORDERED: Acetaminophen 325 MG Tab PO PRN (18:50)
[2018-01-17] MEDS ORDERED: Ondansetron 4 MG Tab.DIS PO PRN (18:50)
[2018-01-17] MEDS ORDERED: fentaNYL 100 MCG/2 ML SDV IVPUSH PRN (18:50)
[2018-01-17] MEDS: Sodium Chloride 0.9% 1,000 ML IV SCH (20:00)
[2018-01-17] MEDS ORDERED: Melatonin 3 MG Tab PO PRN (20:31)
[2018-01-17] MEDS: GEMFIBROZIL 600 MG PO SCH (20:59)
[2018-01-17] MEDS: METOPROLOL TARTRATE 50 MG PO SCH (20:59)
[2018-01-17] MEDS ORDERED: SIMVASTATIN 40 MG PO SCH (21:00)
[2018-01-17] MEDS ORDERED: Melatonin 3 MG Tab PO SCH (21:00)
[2018-01-17] MEDS: NINTEDANIB ESYLATE 150 MG PO SCH (21:01)
[2018-01-18] MEDS ORDERED: OMEPRAZOLE 20 MG PO SCH (07:30)
[2018-01-18] MEDS: GEMFIBROZIL 600 MG PO SCH (08:32)
[2018-01-18] MEDS: METOPROLOL TARTRATE 50 MG PO SCH (08:32)
[2018-01-18] MEDS: NINTEDANIB ESYLATE 150 MG PO SCH (08:33)
[2018-01-18] MEDS: Sodium Chloride 0.9% 1,000 ML IV SCH (08:36)
[2018-01-18] MEDS ORDERED: Losartan 50 MG Tab PO SCH (09:00)
[2018-01-18] MEDS ORDERED: Aspirin 81 MG Tab.EC PO SCH (09:00)
--- NOTE | 2018-01-18 09:33 | PCM.DCSUM1 ---
Discharge Summary - Hospital Course Brief History: 77-year-old male with idiopathic pulmonary fibrosis who presented with acute abdominal pain and was admitted for observation after CT scan suggested possible ileus - Discharge Data Discharge Date: 01/18/18 Discharge Disposition: Home, Self-Care 01 Condition: Good - Discharge Diagnosis/Problem(s) (1) Ileus, unspecified SNOMED Code(s): 77705696 ICD Code: K56.7 - ILEUS, UNSPECIFIED Status: Acute Current Visit: Yes (2) Abdominal pain SNOMED Code(s): 56397223 ICD Code: R10.9 - UNSPECIFIED ABDOMINAL PAIN Status: Acute Current Visit : Yes Qualifiers: Abdominal location: generalized Qualified Code(s): R10.84 - Generalized abdominal pain (3) Idiopathic pulmonary fibrosis Status: Chronic Current Visit: Yes - Patient Summary/Data Hospital Course: Reed presented to the emergency room yesterday with acute abdominal pain. CT scan in the emergency room suggested possible ileus with significant gaseous distention of the colon. He was admitted for observation given the severity of his pain and unclear etiology for the possible ileus. Overnight he had minimal abdominal pain. He has not had any fevers. He is passing gas. Tolerated a regular diet this morning. I suspect the ileus could be a result of use of loperamide. There is no evidence for infection. There is no evidence for obstruction. His x-ray on the morning of discharge did look better but still had a fair amount gas in the colon. I encouraged him to minimize the use of loperamide and use one dose at a time rather than 2 pills at once. He is feeling better and comfortable going home at this time. He will maintain activity as tolerated and a regular diet as tolerated. - Patient Instructions Diet: Regular Diet as Tolerated Activity: As Tolerated Showering/Bathing: May Shower Notify Provider of: Fever, Increased Pain, Nausea and/or Vomiting Other/Special Instructions: 1. You were in the hospital for observation and further workup of generalized abdominal pain and possible ileus. Symptoms have improved without any particular intervention. I suspect that the episode may have been caused by using the loperamide. I would recommend that if you need to use this medication for diarrhea in the future only take 1 tablet at a time. 2. Continue your usual home medications as previously prescribed. 3. Seek medical attention if you have severe abdominal pain, persistent vomiting or if you develop fever greater than 101 - Discharge Plan Home Medications: Home Meds Gemfibrozil 600 mg PO BID 06/16/14 [History] Omeprazole 20 mg PO DAILY 06/16/14 [History] Simvastatin 40 mg PO BEDTIME 06/16/14 [History] Nitroglycerin [Nitrostat] 0.4 mg SL ASDIRECTED PRN 03/16/15 [History] Sildenafil [Viagra] 100 mg PO BEDTIME PRN 03/16/15 [History] Triamcinolone Acetonide [Kenalog 0.1% Crm] 1 applic TOP BID 03/16/15 [History] Aspirin [Halfprin] 1 tab PO DAILY 02/23/17 [History] Melatonin 1 tab PO BEDTIME 02/23/17 [History] Losartan [Cozaar] 1 tab PO DAILY 01/17/18 [History] Metoprolol Tartrate 1 tab PO BID 01/17/18 [History] Nintedanib Esylate [Ofev] 1 tab PO BID 01/17/18 [History] Patient Handouts: Ileus Referrals: Darnell Rhodes MD [Primary Care Provider] - (f/u as needed after the hospital stay ) - Discharge Summary/Plan Comment DC Time >30 min.: No (25) - Patient Data Vitals - Most Recent: Last Vital Signs Temp 36.8 C 01/18/18 07:02 Pulse 61 01/18/18 08:32 Resp 18 01/18/18 07:02 BP 110/79 01/18/18 08:32 Pulse Ox 98 01/18/18 07:02 Weight - Most Recent: 63.412 kg I&O - Last 24 hours: Intake & Output 01/17/18 01/18/18 01/18/18 22:59 06:59 14:59 Intake Total 829 240 Output Total 400 450 125 Balance -400 379 115 Lab Results - Last 24 hrs: Laboratory Results - last 24 hr 01/17/18 01/17/18 01/17/18 Range/Units 15:06 15:06 15:06 WBC 8.4 (4.5-11.0) K/uL RBC 4.69 (4.30-5.90) M/uL Hgb 14.6 (12.0-15.0) g/dL Hct 41.2 (40.0-54.0) % MCV 88 (80-98) fL MCH 31 (27-31) pg MCHC 35 (32-36) % Plt Count 257 (150-400) K/uL Neut % (Auto) 79 H (36-66) % Lymph % (Auto) 15 L (24-44) % [place] % (Auto) 6 (2-6) % Eos % (Auto) 0 L (2-4) % Baso % (Auto) 0 (0-1) % Sodium 128 L (140-148) mmol/L Potassium 4.0 (3.6-5.2) mmol/L Chloride 92 L (100-108) mmol/L Carbon Dioxide 23 (21-32) mmol/L Anion Gap 17.0 H (5.0-14.0) mmol/L BUN 11 (7-18) mg/dL Creatinine 0.7 L (0.8-1.3) mg/dL Est Cr Clr Drug Dosing 72.83 mL/min Estimated GFR (MDRD) > 60 (>60) Glucose 119 H (74-106) mg/dL Calcium 8.8 (8.5-10.1) mg/dL Total Bilirubin 0.9 (0.2-1.0) mg/dL AST 21 (15-37) U/L ALT 16 (12-78) U/L Alkaline Phosphatase 87 (46-116) U/L Troponin I 0.054 (0.000-0.056) ng/mL Total Protein 7.9 (6.4-8.2) g/dL Albumin 3.8 (3.4-5.0) g/dL Globulin 4.1 H (2.3-3.5) g/dL Albumin/Globulin Ratio 0.9 L (1.2-2.2) Urine Color Urine Appearance Urine pH (4.5-8.0) Ur Specific [place] (1.008-1.030) Urine Protein (NEGATIVE) mg/dL Urine Glucose (UA) (NEGATIVE) mg/dL Urine Ketones (NEGATIVE) mg/dL Urine Occult Blood (NEGATIVE) Urine Nitrite (NEGAITVE) Urine Bilirubin (NEGATIVE) Urine Urobilinogen (NORMAL) mg/dL Ur Leukocyte Esterase (NEGATIVE) Urine RBC (0-5) Urine WBC (0-5) Ur Epithelial Cells Amorphous Sediment Urine Bacteria Urine Mucus 05/26/18 Range/Units 15:47 WBC (4.5-11.0) K/uL RBC (4.30-5.90) M/uL Hgb (12.0-15.0) g/dL Hct (40.0-54.0) % MCV (80-98) fL MCH (27-31) pg MCHC (32-36) % Plt Count (150-400) K/uL Neut % (Auto) (36-66) % Lymph % (Auto) (24-44) % [place] % (Auto) (2-6) % Eos % (Auto) (2-4) % Baso % (Auto) (0-1) % Sodium (140-148) mmol/L Potassium (3.6-5.2) mmol/L Chloride (100-108) mmol/L Carbon Dioxide (21-32) mmol/L Anion Gap (5.0-14.0) mmol/L BUN (7-18) mg/dL Creatinine (0.8-1.3) mg/dL Est Cr Clr Drug Dosing mL/min Estimated GFR (MDRD) (>60) Glucose (74-106) mg/dL Calcium (8.5-10.1) mg/dL Total Bilirubin (0.2-1.0) mg/dL AST (15-37) U/L ALT (12-78) U/L Alkaline Phosphatase (46-116) U/L Troponin I (0.000-0.056) ng/mL Total Protein (6.4-8.2) g/dL Albumin (3.4-5.0) g/dL Globulin (2.3-3.5) g/dL Albumin/Globulin Ratio (1.2-2.2) Urine Color Yellow Urine Appearance Slightly cloudy Urine pH 7.0 (4.5-8.0) Ur Specific [place] 1.010 (1.008-1.030) Urine Protein Negative (NEGATIVE) mg/dL Urine Glucose (UA) Normal (NEGATIVE) mg/dL Urine Ketones Negative (NEGATIVE) mg/dL Urine Occult Blood Negative (NEGATIVE) Urine Nitrite Negative (NEGAITVE) Urine Bilirubin Negative (NEGATIVE) Urine Urobilinogen Normal (NORMAL) mg/dL Ur Leukocyte Esterase Negative (NEGATIVE) Urine RBC 0-5 (0-5) Urine WBC Not seen (0-5) Ur Epithelial Cells Not seen Amorphous Sediment Many Urine Bacteria Rare Urine Mucus Not seen Med Orders - Current: Current Medications Acetaminophen (Tylenol) 650 mg PO Q4H PRN PRN Reason: Pain (Mild 1-3)/fever Albuterol (Proventil Neb Soln) 2.5 mg NEB Q4H PRN PRN Reason: Shortness Of Breath/wheezing Aspirin (Halfprin) 81 mg PO DAILY [facility] Last Admin: 01/18/18 08:32 Dose: 81 mg Fentanyl (Sublimaze) 25 mcg IVPUSH Q2H PRN PRN Reason: Pain (severe 7-10) Gemfibrozil (Lopid) 600 mg PO BID [facility] Last Admin: 01/18/18 08:32 Dose: 600 mg Sodium Chloride (Normal Saline) 1,000 mls @ 75 mls/hr IV ASDIRECTED [facility] Last Admin: 01/18/18 08:36 Dose: 75 mls/hr Ibuprofen (Motrin) 600 mg PO Q6H PRN PRN Reason: Pain/Fever Last Admin: 01/18/18 07:15 Dose: 600 mg Lorazepam (Ativan) 0.5 - 1 mg IVPUSH Q4H PRN PRN Reason: Nausea/Vomiting Losartan Potassium (Cozaar) 50 mg PO DAILY [facility] Last Admin: 01/18/18 08:32 Dose: 50 mg Melatonin (Melatonin) 3 mg PO BEDTIME PRN PRN Reason: Sleep Last Admin: 01/17/18 21:00 Dose: 3 mg Metoprolol Tartrate (Lopressor) 50 mg PO BID [facility] Last Admin: 01/18/18 08:32 Dose: 50 mg Nintedanib Esylate [ Ofev] 150mg Pt Own 1 tab PO BID [facility] Last Admin: 01/18/18 08:33 Dose: 1 tab Omeprazole 20mg Cap (Pt Own) 20 each PO ACBREAKFAST [facility] Last Admin: 01/18/18 07:16 Dose: 20 each Simvastatin 40mg Tab (Pt Own) 40 each PO BEDTIME [facility] Last Admin: 01/17/18 21:00 Dose: 40 each Ondansetron HCl (Zofran Odt) 4 mg PO Q6H PRN PRN Reason: Nausea able to take PO Ondansetron HCl (Zofran) 4 mg IV Q6H PRN PRN Reason: Nausea/Vomiting Discontinued Medications Fentanyl (Sublimaze) 25 mcg IVPUSH ONETIME ONE Stop: 01/17/18 14:49 Last Admin: 01/17/18 15:19 Dose: 25 mcg Sodium Chloride (Normal Saline) 1,000 mls @ 250 mls/hr IV ASDIRECTED [facility] Last Admin: 01/17/18 15:18 Dose: 250 mls/hr Ondansetron HCl (Zofran) 4 mg IVPUSH ONETIME ONE Stop: 01/17/18 14:49 Last Admin: 01/17/18 15:19 Dose: 4 mg - Exam Quality Assessment: Reports: Supplemental Oxygen General: Reports: Alert, Oriented, Cooperative, No Acute Distress Neck: Reports: Supple Lungs: Reports: Normal Respiratory Effort GI/Abdominal Exam: Soft, No Distention Psy/Mental Status: Reports: Alert, Normal Affect
[2018-01-18 10:29] VITALS: BP 115/88
--- NOTE | 2018-01-20 10:02 | CR ---
Low lung volumes. Patchy densities bilaterally in the midlung zone and most of the left lung base can indicate CHF. Pneumonia is possible.. Somewhat nodular component right midlung zone should be follow ed to resolution. Remote right rib fractures. No pneumothorax.
--- NOTE | 2018-01-20 10:04 | CR ---
Fracture at the base of the first distal phalanx best visualized on the lateral view. Advanced arthri tic change at the first CMC joint.
--- NOTE | 2018-01-20 10:05 | CR ---
Air-fluid levels within the colon. Gas within the colon. No definitive dilated small bowel loops. Non specific gas pattern.
--- NOTE | 2018-01-20 10:39 | US ---
No evidence for acute DVT right lower extremity.
== END 2018-01-18 11:05 | disposition home or self-care (01) ==
LOC: JP.ED 14:01 → JP.MS 17:45
PROVIDERS: ADMIT Internal Medicine; ATTEND Internal Medicine
DX: K56.7 Ileus, unspecified (principal); J84.112 Idiopathic pulmonary fibrosis; W19.XXXA Unspecified fall, initial encounter; S00.81XA Abrasion of other part of head, initial encounter; S60.011A Contusion of right thumb without damage to nail, initial encounter; I25.10 Atherosclerotic heart disease of native coronary artery without angina pectoris; I10 Essential (primary) hypertension; Z79.899 Other long term (current) drug therapy; Z79.82 Long term (current) use of aspirin; Z95.5 Presence of coronary angioplasty implant and graft; Z90.49 Acquired absence of other specified parts of digestive tract; Z66 Do not resuscitate; Z85.46 Personal history of malignant neoplasm of prostate
CPT/HCPCS: 36415; 71045; 73140; 74019; 74176; 80053; 81001; 84484; 85025; 93971; 96361; 96374; 96375; 99285; A9270; J2405; J3010; J7030